=== PATIENT | female | born 1995 | race Caucasian/White ===

== ENCOUNTER → 2019-09-05 | Outpatient (CLI) | payer OTHER ==
--- NOTE | 2019-09-05 10:24 | US ---
EXAMINATION TYPE: Transabdominal DATE OF EXAM: 09/05/2019 10:10 AM COMPARISON: NONE CLINICAL HISTORY: Z36 confirm dates. Dates. 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 EXAM PERFORMED: Transabdominal (TA) EXAM MEASUREMENTS: GESTATIONAL AGE / DATING Dates by LMP: (10 weeks/6 days) EDC: 03/27/2020 Dates by First Scan: No previous this is first scan Dates by Current Scan for: (11 weeks/0 days) EDC: 03/26/2020 MATERNAL ANATOMY Uterus: Endometrium appears slightly measuring 10.0 x 7.2 x 6.6 cm on the right and 9.3 x 3 .6 x 4.3 cm on the left. Uterine anomaly is possible versus normal variant arcuate uterus. Right Ovary: 3.0 x 1.8 x 1.5 cm Left Ovary: 2.9 x 1.5 x 1.4 cm Post CDS / Adnexa: no free fluid Presence of free fluid: no Presence of corpus luteal cyst: right ovarian lesion with peripheral vascular flow = 1.7 x 1.8 x 1.2 cm Presence of subchorionic bleed: no GESTATION / SURVEY CRL: 4.1 cm (11 weeks/0 days) MSD: seen, not measured in right uterine horn Yolk Sac (normal less than 6mm): not visualized Heart Rate: 164 bpm Rhythm: Normal IUP: Viable IUP Nuchal Translucency 10-14wks (normal less than 3mm): 0.8 mm Date of LMP: 06/21/2019 Beta HcG (if available): Not available at this time Single live IUP visualized in right uterine horn measuring 11 weeks 0 days. IMPRESSION: 1. Single live intrauterine with a current sonographic age of 11 weeks and 0 days and estim ated date of delivery of 03/26/2020, overall concordant with menstrual age. 2. Endometrium appears to be with 2 distinct measurable areas on some views therefore uteri ne anomaly versus normal variant arcuate uterus are considerations.
== END | disposition home or self-care (01) ==
LOC: RADUSWWP 09:46
PROVIDERS: ATTEND Obstetrics & Gynecology
DX: Z36.89 Encounter for other specified antenatal screening (principal); Z3A.11 11 weeks gestation of pregnancy
CPT/HCPCS: 76801; 76813

== ENCOUNTER 2020-02-10 11:58 | Outpatient (CLI) | payer OTHER | END 2020-02-10 12:35 | disposition home or self-care (01) | LOC: FBPOP 11:58 | PROVIDERS: ATTEND Obstetrics & Gynecology | DX: R00.1 Bradycardia, unspecified (principal) | CPT/HCPCS: 59025 ==

== ENCOUNTER → 2020-03-21 | Outpatient (CLI) | payer OTHER | END | disposition home or self-care (01) | LOC: LABWHC1 08:46 | PROVIDERS: ATTEND Obstetrics & Gynecology | DX: Z11.59 Encounter for screening for other viral diseases (principal) ==

== ENCOUNTER 2020-03-23 06:10 | Inpatient (IN) | payer OTHER ==
[2020-03-22 12:14] VITALS: BMI 39.2
--- NOTE | 2020-03-22 16:51 | P.HPOB ---
History of Present Illness H&P Date: 03/22/20 Chief Complaint: Intrauterine at term: Prior section Patient is a 24-year-old with prior surgery and sections scheduled for repeat section. Risks/benefits/alternatives reviewed with the patient in detail and all questions were answered for her prior to proceeding to the operative room. Her Precis course generally speaking has been unremarkable and she is feeling well at this time. Past Medical History Past Medical History: No Reported History History of Any Multi-Drug Resistant Organisms: None Reported Past Surgical History: Section Past Anesthesia/Blood Transfusion Reactions: No Reported Reaction Smoking Status: Former smoker Medications and Allergies Home Medications Medication Instructions Recorded Confirmed Type Pnv,Calcium 72/Iron/Folic Acid 1 each PO DAILY 02/10/20 03/22/20 History [ Plus Tablet] Ferrous Sulfate [Feosol] 325 mg PO DAILY 03/22/20 03/22/20 History Allergies Allergy/AdvReac Type Severity Reaction Status Date / Time Penicillins Allergy Unknown Verified 02/10/20 14:23 Childhood Exam Osteopathic Statement: *. No significant issues noted on an osteopathic structural exam other than those noted in the History and Physical/Consult. Intake and Output 03/22/20 03/22/20 03/22/20 06:59 14:59 22:59 Other: Weight 110.223 kg - OBG Physical Exam Breast: both: normal (no masses) Abdomen: bowel sounds normal, no diffuse tenderness, no bruit present, no guarding noted, no hepatomegaly, no splenomegaly, no mass Vulva: both: normal Vagina: normal moisture, no discharge Cervix: no lesion, no discharge Uterus: normal size, normal contour Adnexa: both: normal Anus/Rectum: normal perianal skin, no rectal mass, no hemorrhoids, heme negative
[~2020-03-23 06:10] MED LIST: CLINDAMYCIN 600 MG in DEXTROSE 5% IN WATER 50 ML IVPB STA
[2020-03-23] MEDS ORDERED: CITRIC ACID-SODIUM CITRATE 15 ML CUP PO ONE (06:30)
[2020-03-23] MEDS: LACTATED RINGERS 1,000 ML IV SCH ×3 (06:41→17:45)
[2020-03-23 06:48] LABS: Basophils % (A) 0 %; Eosinophils # (A) 0.1 k/uL (0-0.7); Eosinophils % (A) 1 %; HCT 36.5 % (34.0-46.0); HGB 11.5 gm/dL (11.4-16.0); Lymphocytes # (A) 2.2 k/uL (1.0-4.8); Lymphocytes % (A) 29 %; MCH 29.1 pg (25.0-35.0); MCHC 31.5 g/dL (31.0-37.0); MCV 92.3 fL (80.0-100.0); Mean Platelet Volume 13.2; Monocytes # (A) 0.3 k/uL (0-1.0); Monocytes % (A) 5 %; Neutrophils # (A) 4.7 k/uL (1.3-7.7); Neutrophils % (A) 63 %; RBC 3.95 m/uL (3.80-5.40); RDW 13.2 % (11.5-15.5); WBC 7.5 k/uL (3.8-10.6)
[2020-03-23 07:53] LABS: Platelet Count 158 k/uL (150-450)
[2020-03-23 07:54] LABS: Large Platelets Present
[2020-03-23] MEDS ORDERED: ONDANSETRON 4 MG/2 ML VIAL ONE (07:54)
[2020-03-23] MEDS ORDERED: MORPHINE SULFATE (PF) 0.3 MG/0.3 ML SYR ONE (07:54)
[2020-03-23] MEDS ORDERED: NALBUPHINE 10 MG/ML (1 ML AMP) ONE (07:54)
[2020-03-23] MEDS ORDERED: KETOROLAC 30 MG/ML 1 ML VIAL ONE (07:54)
[2020-03-23] MEDS ORDERED: OXYTOCIN 10 UNIT/ML 1 ML VIAL ONE (07:54)
[2020-03-23] MEDS ORDERED: CELLULOSE,OXIDIZED 1 EACH EACH MISCELLANE ONE (08:22)
[2020-03-23] MEDS ORDERED: ZOLPIDEM 5 MG TAB PO PRN (08:49)
[2020-03-23] MEDS ORDERED: ONDANSETRON 4 MG/2 ML VIAL IVP PRN (08:49)
[2020-03-23] MEDS ORDERED: diphenhydrAMINE 50 MG/ML 1 ML VIAL IVP PRN ×3 (08:49→09:16)
[2020-03-23] MEDS ORDERED: NALOXONE 0.4 MG/ML 1 ML VIAL IV PRN (08:49)
[2020-03-23] MEDS ORDERED: diphenhydrAMINE 25 MG CAP PO PRN (08:49)
[2020-03-23] MEDS ORDERED: diphenhydrAMINE 50 MG CAP PO PRN (08:49)
[2020-03-23] MEDS ORDERED: METOCLOPRAMIDE 5 MG/ML 2 ML VIAL IVP PRN (08:49)
[2020-03-23] MEDS ORDERED: HYDROcodone/APAP 7.5-325MG 1 EACH TAB PO PRN (08:49)
[2020-03-23] MEDS ORDERED: ACETAMINOPHEN TAB 325 MG TAB PO PRN (08:49)
--- NOTE | 2020-03-23 08:54 | P.OP ---
Date of Procedure: 03/23/20 Preoperative Diagnosis: Intrauterine term: Prior section: Bicornuate uterus Postoperative Diagnosis: Same with adhesion Procedure(s) Performed: Repeat low transverse section with lysis of adhesion Anesthesia: spinal Surgeon: Dhruv Johnson Employment Coordinator #1: Na Tarango Estimated Blood Loss (ml): 350 IV fluids (ml): 1,400 Urine output (ml): 400 Pathology: none sent Condition: stable Disposition: floor Operative Findings: Male scores of 9 and 9 at one and 5 minutes respectively weight is pending. There is notation of a approximate 1 cm thick adhesion to the anterior uterine wall from the abdominal wall that was doubly ligated and transected Description of Procedure: Patient was taken to the operating suite where a spinal anesthetic was found be adequate. She was prepped and draped in the normal sterile fashion and placed in dorsal supine position with leftward tilt. Initially a Pfannenstiel skin incision was made and this incision was then carried through to the underlying layer of the fascia was second knife. Fascia was then nicked in the midline and this opening was extended laterally with Baker scissors. Superior and inferior aspect of this incision were then grasped tented up and bluntly and sharply dissected off the rectus muscles. Rectus muscles were then divided the midline and sharp dissection through the peritoneum was done. This opening was then extended superiorly and inferiorly with good visualization of both bowel bladder. Immediately upon entering a thick adhesion was noted and was doubly ligated and transected. Bladder blade was then placed and vesicouterine peritoneum identified and entered with Metzenbaum scissors and carried across face the uterus. Bladder was then bluntly dissected out of the operative field. Uterine incision was then made and then was fully developed with hemostat and extended bluntly. Bladder was then noted and elevated into the incision and once legs were delivered baby's body was brought down to shoulders were swept across the face and the head was easily delivered. Mouth nares were then bulb suctioned and the umbilical cord was clamped cut usual fashion. Nursery personnel was present and assumed care. Placenta was then delivered intact from the right horn of the uterus and uterus was then exteriorized cleared of clots and debris and closed in 2 layers with 0 Vicryl suture. Once excellent hemostasis was obtained blood and debris was suctioned from the posterior cul-de-sac and a piece of Interceed was placed over the adhesive area. Uterus was then reinserted into the abdomen and the peritoneal layer was delayed with hemostats and closed with 0 Vicryl suture. Fascial layer was closed with 0 Vicryl suture. One layer of 3-0 Vicryl was placed in deep subcuticular tissues reapproximate skin and close the space. Skin was then closed with 3-0 Vicryl subcuticular. Sponge, lap, needle counts were all correct 2. Patient was then taken to the recovery room in stable and satisfactory condition.
[2020-03-23] MEDS ORDERED: NALBUPHINE 10 MG/ML (1 ML AMP) IV PRN (09:16)
[2020-03-23] MEDS ORDERED: HYDROmorphone 0.5 MG/0.5 ML SYRINGE IVP PRN (09:16)
[2020-03-23 13:00] LABS: Amphetamine Screen,Urine Not Detected (NotDetected); Barbiturate Screen,Urine Not Detected (NotDetected); Benzodiazepines Screen,Urine Not Detected (NotDetected); Cocaine Screen,Urine Not Detected (NotDetected); Methadone Screen, Urine Not Detected (NotDetected); Opiate Screen,Urine Detected (NotDetected); Oxycodone Screen, Urine Not Detected (NotDetected); Phencyclidine Screen,Urine Not Detected (NotDetected); Tricyclic Antidepressant,Urine Not Detected (NotDetected); Urn Cannabinoid Scrn Detected (NotDetected)
[2020-03-23] MEDS: KETOROLAC 30 MG/ML 1 ML VIAL IVP PRN ×2 (15:03→21:34)
[2020-03-23] MEDS ORDERED: Rhogam IMMUNE GLOBULIN 1,500 UNIT/1 ML IM ONE (18:09)
[2020-03-23 21:00] LABS: Basophils % (A) 0 %; Eosinophils % (A) 0 %; HCT 22.3 % (34.0-46.0); Hypochromasia Slight; Lymphocytes # (A) 1.8 k/uL (1.0-4.8); Lymphocytes % (A) 8 %; MCH 30.8 pg (25.0-35.0); MCHC 32.4 g/dL (31.0-37.0); MCV 95.2 fL (80.0-100.0); Mean Platelet Volume 14.8; Monocytes # (A) 0.6 k/uL (0-1.0); Monocytes % (A) 3 %; Neutrophils # (A) 21.2 k/uL (1.3-7.7); Neutrophils % (A) 89 %; Platelet Count 251 k/uL (150-450); RBC 2.34 m/uL (3.80-5.40); RDW 13.8 % (11.5-15.5); WBC 23.8 k/uL (3.8-10.6)
[2020-03-23 21:15] LABS: HGB 7.2 gm/dL (11.4-16.0)
[2020-03-23] MEDS: SIMETHICONE 80 MG CHEWABLE PO PRN (21:37)
[2020-03-24] MEDS: SENNOSIDES-DOCUSATE SODIUM 1 EACH TAB PO SCH (02:52)
--- NOTE | 2020-03-24 03:37 | P.PN ---
Progress Note - Text Progress Note Date: 03/24/20 I was called by nursing staff earlier this evening to inform me that patient had passed several large blood clots and her blood pressure had dropped slightly. At that time her pulse rate was normal. I ordered a stat CBC. Her hemoglobin dropped from 11.5-7.5. The patient at this time was noted to have some tachycardia and still low blood pressures. She was also feeling nauseated. I ordered 1 unit of packed red blood cells. While this was infusing her blood pressure dropped even lower and she was continuing to be tachycardic. Her bleeding had slowed significantly at this time. I ordered a second IV to be started and a fluid bolus due to her low urine output. I just checked on her personally and she is feeling much better. Her blood pressures are back up to 100's over 60s. She denies feeling lightheaded or dizzy at this time. She denies any excessive bleeding currently. She is feeling like she may be able to urinate on her own shortly. She is advised to contact the nurse to get up to the bathroom. She is advised to call if she starts feeling dizzy or lightheaded again or she starts to bleed heavily.
[2020-03-24] MEDS: LACTATED RINGERS 1,000 ML IV SCH (05:00)
[2020-03-24] MEDS: SIMETHICONE 80 MG CHEWABLE PO PRN ×2 (05:00→13:10)
[2020-03-24 07:16] LABS: Basophils % (A) 0 %; Eosinophils # (A) 0.4 k/uL (0-0.7); Eosinophils % (A) 2 %; HCT 20.6 % (34.0-46.0); Lymphocytes # (A) 1.5 k/uL (1.0-4.8); Lymphocytes % (A) 8 %; MCH 30.9 pg (25.0-35.0); MCHC 34.1 g/dL (31.0-37.0); MCV 90.5 fL (80.0-100.0); Mean Platelet Volume 13.2; Monocytes # (A) 0.5 k/uL (0-1.0); Monocytes % (A) 3 %; Neutrophils # (A) 17.1 k/uL (1.3-7.7); Neutrophils % (A) 87 %; Platelet Count 178 k/uL (150-450); RBC 2.27 m/uL (3.80-5.40); RDW 14.7 % (11.5-15.5); WBC 19.6 k/uL (3.8-10.6)
[2020-03-24 08:15] LABS: Large Platelets Present
--- NOTE | 2020-03-24 08:45 | P.PN ---
Progress Note - Text Progress Note Date: 03/24/20 Desiree is seen and evaluated this morning postop day 1. She is ambulating. She is not voided and has been straight cath twice. I reviewed notes from yesterday and her syncopal episode as well as what appears to be a significant drop in hemoglobin and hypovolemia. It appears based on the description by both patient and notes that she had a an episode of very very heavy bleeding or passage of quite a few large clots in the afternoon resulting in a hypotensive/tachycardic episode and a syncopal episode. IV was restarted and medication to promote uterine tonicity was provided and her bleeding slowed significantly. Blood pressures following that were improved to the 100s over 60s. This morning her blood pressures 122/58. She has no signs or symptoms of hypovolemia. At this time she is not lightheaded minimally tachycardic but she says she feels very well she voices no complaints she's smiling sitting up in bed does not complain of fatigue or any other signs or symptoms. Her hemoglobin this morning is 7 despite having received 1 unit of blood yesterday's was difficult to say what her hemoglobin actually would have been down to. There is no signs of active bleeding anywhere. Her abdomen is soft there is no tenderness or pain her incision is otherwise intact without any bleeding. It does not appear that she had internal bleeding and it sounds more like she had incomplete uterine tonicity resulting in post /operative hemorrhage. Consideration for another unit of blood will be given and will be discussed with her she does not have to do this will plan to repeat her CBC in the morning and Dr. Baum will be covering for the remainder the day and tomorrow. While I'm not necessarily going to advise her to receive the blood I'm certainly not going to discounted as a will probably help her and increase her hemoglobin potentially up closer to 8 and if there is any continued active bleeding through the vagina and we'll stabilize this and keep her hemoglobin above 7. On physical exam vital signs again are stable at this time with no hypertension Heart is regular, lungs are clear, extremities without pain. Abdomen soft positive bowel sounds incision is otherwise intact. Assessment postop day 1 with blood loss anemia and symptomatically hypertension yesterday appears corrected today following 1 unit of packed red blood cells Plan continue care with discussion on and possible provide for another unit of packed red blood cells
[2020-03-24] MEDS: IBUPROFEN 600 MG TAB PO PRN ×2 (13:10→19:50)
[2020-03-25] MEDS: SENNOSIDES-DOCUSATE SODIUM 1 EACH TAB PO SCH ×4 (02:38→20:52)
[2020-03-25] MEDS: IBUPROFEN 600 MG TAB PO PRN ×3 (02:39→21:06)
[2020-03-25 08:26] LABS: Basophils % (A) 0 %; Eosinophils # (A) 0.1 k/uL (0-0.7); Eosinophils % (A) 1 %; Lymphocytes # (A) 1.4 k/uL (1.0-4.8); Lymphocytes % (A) 13 %; MCH 29.8 pg (25.0-35.0); MCHC 32.3 g/dL (31.0-37.0); MCV 92.3 fL (80.0-100.0); Mean Platelet Volume 11.8; Monocytes # (A) 0.4 k/uL (0-1.0); Monocytes % (A) 4 %; Neutrophils # (A) 9.3 k/uL (1.3-7.7); Neutrophils % (A) 82 %; Platelet Count 176 k/uL (150-450); RBC 1.95 m/uL (3.80-5.40); RDW 14.6 % (11.5-15.5); WBC 11.3 k/uL (3.8-10.6)
[2020-03-25 08:33] LABS: HGB 5.8 gm/dL (11.4-16.0)
[2020-03-25 09:25] LABS: Large Platelets Present
--- NOTE | 2020-03-25 12:24 | P.PNOBGPC ---
Subjective - Subjective Principal diagnosis: Status post section postoperative day #2 Interval history: Patient is feeling well today. She denies any dizziness or lightheadedness. Her bleeding has significantly decreased and is only been minimal. She is urinating without difficulty. Pain is been well controlled. She is breast- feeding. Patient reports: Reports appetite normal, Reports voiding normally, Reports pain well controlled, Reports ambulating normally Guthrie: doing well, nursing well Objective - Vital Signs Latest vital signs: Vital Signs Temp Pulse Pulse Resp BP BP Pulse Ox 03/25/20 11:58 98.4 F 110 H 16 142/75 98 03/25/20 11:40 98.1 F 112 H 16 138/78 98 03/25/20 11:25 98.0 F 110 H 16 150/84 98 03/25/20 11:15 97.9 F 116 H 16 140/84 03/25/20 07:58 98.4 F 103 H 16 130/74 03/25/20 00:00 98.3 F 84 16 118/64 03/24/20 20:00 98.4 F 98 18 128/72 03/24/20 16:00 97.2 F L 103 H 16 123/64 98 Intake and Output 03/24/20 03/25/20 03/25/20 22:59 06:59 14:59 Intake Total 0 Balance 0 Intake: Blood Product 0 Rc As-1 Unit 0 [id number] Other: # Voids 2 - Exam Extremities: Present: normal. Absent: tenderness, edema Abdomen: Present: normal appearance, soft. Absent: distention, tenderness Incision: Present: normal, dry, intact. Absent: erythematous Uterus: Present: normal, firm. Absent: tenderness - Labs Labs: Abnormal Lab Results - Last 24 Hours (Table) 03/23/20 03/25/20 Range/Units 06:20 07:57 WBC 11.3 H (3.8-10.6) k/uL RBC 1.95 L (3.80-5.40) m/uL Hgb 5.8 L* (11.4-16.0) gm/dL Hct 18.0 L* (34.0-46.0) % Neutrophils # 9.3 H (1.3-7.7) k/uL Crossmatch See Detail Assessment and Plan (1) delivery delivered Current Visit: Yes Status: Acute Code(s): O82 - ENCOUNTER FOR DELIVERY WITHOUT INDICATION SNOMED Code(s): 137896177 (2) Acute blood loss as cause of postoperative anemia Current Visit: Yes Status: Acute Code(s): D62 - ACUTE POSTHEMORRHAGIC ANEMIA SNOMED Code(s): 52103307551875019 Plan: Patient's hemoglobin this morning was 5.8 after receiving 2 units of blood yesterday. Her hemoglobin after the first unit of blood was 7. She also is severely dehydrated and after IV hydration and the blood, she has resumed normal urination and she is asymptomatic. However since she is this low I decided to transfuse one more unit to give her above her in case she does start to have any heavier bleeding at home. She is in agreement with this plan. Will recheck CBC in the morning and hopefully discharge home tomorrow if she is feeling well and her hemoglobin has improved.
[2020-03-25] MEDS: LACTATED RINGERS 1,000 ML IV SCH ×4 (20:07→20:11)
[2020-03-26 00:43] VITALS: TEMP 98.3
[2020-03-26 05:55] LABS: Basophils % (A) 0 %; Eosinophils # (A) 0.1 k/uL (0-0.7); Eosinophils % (A) 2 %; Lymphocytes # (A) 1.4 k/uL (1.0-4.8); Lymphocytes % (A) 21 %; MCH 31.5 pg (25.0-35.0); MCHC 33.8 g/dL (31.0-37.0); MCV 93.2 fL (80.0-100.0); Mean Platelet Volume 10.6; Monocytes # (A) 0.2 k/uL (0-1.0); Monocytes % (A) 4 %; Neutrophils # (A) 4.7 k/uL (1.3-7.7); Neutrophils % (A) 71 %; Platelet Count 167 k/uL (150-450); RBC 2.09 m/uL (3.80-5.40); RDW 14.9 % (11.5-15.5); WBC 6.7 k/uL (3.8-10.6)
[2020-03-26 05:57] LABS: HGB 6.6 gm/dL (11.4-16.0)
[2020-03-26 05:58] LABS: HCT 19.5 % (34.0-46.0)
--- NOTE | 2020-03-26 07:51 | P.PN ---
Progress Note - Text 03/24 5158 84-year-old female status post with spinal Duramorph. Patient seen and evaluated for postop pain control with this pain score of 3, no complains of pruritus or nausea vomiting. Doing well
--- NOTE | 2020-03-26 08:45 | P.DS ---
Providers Date of admission: 03/23/20 06:10 Expected date of discharge: 03/26/20 Attending physician: Dhruv Johnson Primary care physician: [facility] Course: Desiree is seen and evaluated postop day 3. She has been ambulating and voiding without difficulty and without assistance. Her vital signs have remained stable. Her blood pressures have been 130s over 70s 120s over 80s the last 2 days. She has had some mild tachycardia but this has never been above 110 and she has been asymptomatic. It is noted that she received another unit of blood yesterday and that her hemoglobin this morning is 6.6. It would appear that even if she had some internal bleeding it has stopped and she is requesting discharge to home. She and I did discuss at length the possibility that she did have some internal bleeding but her physical exam does not suggest or verify this possibility. Despite her very low hemoglobin she has remained very stable and at this time she is requesting discharge home. The prescription for Motrin and a breast pump were provided. Discharge instructions were very thoroughly reviewed both she and her day voice understanding. Her heart is regular, lungs are clear, extremities without pain. Abdomen is soft bowel sounds are present. Her incision is clean dry and intact. Despite her low hemoglobin and the possibility that she may have had some internal bleeding that appears to stopped, I again cannot verify this. She has no ecchymosis or bruising on her abdomen and again her belly is very soft with no evidence of any pain at all suggestive of hemoperitoneum. Assessment postop day 3 with blood loss anemia Plan discharged home follow up with me in 1 week for incision check and verify stability of symptoms. Patient Condition at Discharge: Good Plan - Discharge Summary New Discharge Prescriptions: New Ibuprofen [Motrin] 600 mg PO Q6HR PRN #30 tab PRN Reason: Pain No Action Pnv,Calcium 72/Iron/Folic Acid [ Plus Tablet] 1 each PO DAILY Ferrous Sulfate [Feosol] 325 mg PO DAILY Discharge Medication List Pnv,Calcium 72/Iron/Folic Acid [ Plus Tablet] 1 each PO DAILY 02/10/20 [History] Ferrous Sulfate [Feosol] 325 mg PO DAILY 03/22/20 [History] Ibuprofen [Motrin] 600 mg PO Q6HR PRN #30 tab 03/26/20 [Rx] Follow up Appointment(s)/Referral(s): Dhruv Johnson DO [Doctor of Osteopathic Medicine] - 1 Week Activity/Diet/Wound Care/Special Instructions: No heavy lifting, limit stairs and driving, and pelvic rest. If any high temperatures, heavy bleeding, or severe pain call my office. She and I did discuss if she has any lightheadedness dizziness signs as or symptoms of hypovolemia to notify our office or [facility] emergency room immediately. Discharge Disposition: HOME SELF-CARE
[2020-03-26] MEDS: SENNOSIDES-DOCUSATE SODIUM 1 EACH TAB PO SCH (08:56)
[2020-03-26 09:27] VITALS: BP 151/89; PULSE 106; RESP 16
== END 2020-03-26 13:30 | disposition home or self-care (01) | DRG 787 ==
LOC: 4FBP 06:10
PROVIDERS: ADMIT Obstetrics & Gynecology; ATTEND Obstetrics & Gynecology
PROC: 30233N1 Transfusion of Nonautologous Red Blood Cells into Peripheral Vein, Percutaneous Approach (ICD-10-PCS; 2020-03-23)
PROC: 3E0334Z Introduction of Serum, Toxoid and Vaccine into Peripheral Vein, Percutaneous Approach (ICD-10-PCS; 2020-03-23)
PROC: 10D00Z1 Extraction of Products of Conception, Low, Open Approach (ICD-10-PCS; principal; 2020-03-23 08:00)
PROC: 0UN90ZZ Release Uterus, Open Approach (ICD-10-PCS; principal; 2020-03-23 08:00)
DX: O34.211 Maternal care for low transverse scar from previous cesarean delivery (principal); D62 Acute posthemorrhagic anemia; O36.0930 Maternal care for other rhesus isoimmunization, third trimester, not applicable or unspecified; K66.0 Peritoneal adhesions (postprocedural) (postinfection); O16.4 Unspecified maternal hypertension, complicating childbirth; O99.02 Anemia complicating childbirth; Z37.0 Single live birth; Z87.891 Personal history of nicotine dependence
CPT/HCPCS: 80306; 85025; 85461; 86850; 86900; 86901; 86920

== ENCOUNTER 2024-09-15 05:50 | Inpatient (IN) | payer OTHER ==
[2024-09-15] MEDS ORDERED: OXYTOCIN 10 UNIT/ML 1 ML VIAL IM PRN (06:07)
[2024-09-15] MEDS ORDERED: CARBOPROST TROMETHAMINE 250 MCG/ML 1 ML AMP IM PRN (06:07)
[2024-09-15] MEDS ORDERED: METHYLERGONOVINE 0.2 MG/ML 1 ML AMP IM PRN (06:07)
[2024-09-15] MEDS ORDERED: TRANEXAMIC 1,000 MG/100ML-NACL 1,000 MG in EMPTY BAG 1 BAG IV PRN (06:07)
[2024-09-15] MEDS ORDERED: miSOPROStoL 200 MCG TAB PO PRN (06:07)
[2024-09-15 06:25] LABS: Basophils % (A) 1 %; Eosinophils # (A) 0.1 k/uL (0-0.7); Eosinophils % (A) 1 %; HCT 35.3 % (34.0-46.0); HGB 11.6 gm/dL (11.4-16.0); Lymphocytes # (A) 1.6 k/uL (1.0-4.8); Lymphocytes % (A) 21 %; MCH 30.2 pg (25.0-35.0); MCHC 32.9 g/dL (31.0-37.0); MCV 91.8 fL (80.0-100.0); Mean Platelet Volume 10.6; Monocytes # (A) 0.3 k/uL (0-1.0); Monocytes % (A) 4 %; Neutrophils # (A) 5.7 k/uL (1.3-7.7); Neutrophils % (A) 73 %; Platelet Count 201 k/uL (150-450); RBC 3.84 m/uL (3.80-5.40); RDW 13.6 % (11.5-15.5); WBC 7.8 k/uL (3.8-10.6)
[2024-09-15] MEDS: LACTATED RINGERS 1,000 ML IV SCH ×2 (06:25→13:12)
[2024-09-15] MEDS: CITRIC ACID-SODIUM CITRATE 15 ML CUP PO ONE (07:34)
[2024-09-15] MEDS ORDERED: MORPHINE SULFATE (PF) 0.3 MG/0.3 ML SYR ONE (08:00)
[2024-09-15] MEDS ORDERED: PHENYLEPHRINE-0.9% NACL SYG 1,000 MCG/10 ML SYRINGE ONE (08:00)
[2024-09-15] MEDS ORDERED: OXYTOCIN 30 UNITS/500 ML NS BAG IV ONE (08:00)
[2024-09-15] MEDS ORDERED: fentaNYL (PF) 50 MCG/ML 2 ML AMP ONE (08:00)
[2024-09-15] MEDS: OXYTOCIN 30 UNITS/500 ML NS 30 UNIT in SALINE 1 500ML.BAG IV SCH (08:53)
--- NOTE | 2024-09-15 09:03 | P.HPOB ---
History of Present Illness H&P Date: 09/15/24 Chief Complaint: IUP at 39-0/7 weeks, unicornuate uterus, history of x 2 29-year-old -0-0-2 at 39 0/7 weeks that presents to labor and delivery for scheduled repeat section. Patient has been receiving routine care which has been essentially uncomplicated. Patient has a prior history of 2 secondary to unicornuate uterus. Patient does have a history of hemorrhage with prior deliveries. This morning patient notes good movement denies contractions vaginal bleeding or loss of fluid. On blood work this patient is a poor type of A-, rubella status immune, hepatitis B surface engine negative, HIV negative, RPR is nonreactive, grew beta strep cultures negative. Review of Systems Constitutional: Denies chills, Denies fatigue, Denies fever Ears, nose, mouth and throat: Denies headache Cardiovascular: Reports leg edema Respiratory: Denies dyspnea Gastrointestinal: Denies nausea, Denies vomiting Genitourinary: Reports Past Medical History Past Medical History: No Reported History Additional Past Medical History / Comment(s): hx anemia with last . 2 blood transfusions. has had iron infusions with current . History of Any Multi-Drug Resistant Organisms: None Reported Past Surgical History: Section Additional Past Surgical History / Comment(s): wisdom teeth removed, Past Anesthesia/Blood Transfusion Reactions: No Reported Reaction Additional Past Anesthesia/Blood Transfusion Reaction / Comment(s): no issues with blood transfusions Past Psychological History: No Psychological Hx Reported Smoking Status: Former smoker Past Alcohol Use History: None Reported Additional Past Alcohol Use History / Comment(s): quit smoking 11/2023 for Past Drug Use History: Marijuana Additional Drug Use History / Comment(s): none since december 2023 - Past Family History Father Family Medical History: No Reported History Mother Family Medical History: Hypertension Medications and Allergies Home Medications Medication Instructions Recorded Confirmed Type Vit No.180/Iron/Folic 1 each PO DAILY 02/10/20 09/15/24 History [ Plus Tablet] Iron 27mg 1 tab PO BID 09/13/24 09/15/24 History Allergies Allergy/AdvReac Type Severity Reaction Status Date / Time Penicillins Allergy Unknown Verified 09/13/24 13:07 Childhood Exam Osteopathic Statement: *. No significant issues noted on an osteopathic structural exam other than those noted in the History and Physical/Consult. Intake and Output 09/14/24 09/15/24 09/15/24 22:59 06:59 14:59 Other: Weight 101.605 kg Targeted physical exam is performed this date General Is well-nourished well- developed female in no acute distress, breathing is nonlabored, heart has a regular rate and rhythm, abdomen is gravid and appropriate for gestational age, cervical exam is deferred, heart tones noted be category 1 and she is not kandace. Results Result Diagrams: 09/15/24 06:07 Assessment and Plan (1) Term Current Visit: Yes Status: Acute Code(s): Z34.90 - ENCNTR FOR SUPRVSN OF NORMAL , UNSP, UNSP TRIMESTER SNOMED Code(s): 19432207 (2) History of section Current Visit: Yes Status: Acute Code(s): Z98.891 - HISTORY OF UTERINE SCAR FROM PREVIOUS SURGERY SNOMED Code(s): 933489646 (3) Unicornuate uterus Current Visit: Yes Status: Acute Code(s): Q51.4 - UNICORNATE UTERUS SNOMED Code(s): 7805980 Plan: 29-year-old G3, P2 at 39-0/7 weeks that presents for repeat section. Patient has a history of a uterine anomaly, unicornuate uterus. Patient is counseled on repeat section and questions were answered. Anesthesia into see patient and will proceed to operating suite.
[2024-09-15] MEDS ORDERED: ONDANSETRON 4 MG/2 ML VIAL IVP PRN (09:07)
[2024-09-15] MEDS ORDERED: diphenhydrAMINE 50 MG CAP PO PRN (09:07)
[2024-09-15] MEDS ORDERED: diphenhydrAMINE 50 MG/ML 1 ML VIAL IVP PRN ×2 (09:07)
[2024-09-15] MEDS ORDERED: NALOXONE 0.4 MG/ML 1 ML VIAL IV PRN (09:07)
[2024-09-15] MEDS ORDERED: SIMETHICONE 80 MG CHEWABLE PO PRN (09:07)
[2024-09-15] MEDS ORDERED: METOCLOPRAMIDE 5 MG/ML 2 ML VIAL IVP PRN (09:07)
[2024-09-15] MEDS ORDERED: ZOLPIDEM 5 MG TAB PO PRN (09:07)
[2024-09-15] MEDS ORDERED: diphenhydrAMINE 25 MG CAP PO PRN (09:07)
--- NOTE | 2024-09-15 09:07 | P.OP ---
Date of Procedure: 09/15/24 Preoperative Diagnosis: IUP at 39-0/7 weeks, history of section x 2, desires repeat, unicornuate uterus Postoperative Diagnosis: Same Procedure(s) Performed: Repeat section Anesthesia: spinal Surgeon: [employer] Learning Support Teacher #1: Na Tarango Estimated Blood Loss (ml): 585 IV fluids (ml): 1,000 Urine output (ml): 300 Pathology: none sent Condition: stable Disposition: observation Indications for Procedure: History of section x 2, unicornuate uterus Operative Findings: Unicornuate uterus is appreciated, viable female infant delivered in transverse presentation, at 826, weight of 6 pounds 9 ounces Description of Procedure: Patient was taken back to the operating suite where spinal anesthesia was found to be adequate by the anesthesia department. She was prepped and draped in normal sterile fashion in the dorsal supine position. A Pfannenstiel skin incision was made with a scalpel and carried through the underlying layer of fascia. The fascia was incised in the midline and extended laterally. The superior aspect of the fascial incision was then grasped with Moises clamps, elevated and the underlying rectus muscles dissected off sharply. The inferior aspect of the vaginal incision was then grasped with Moises clamps, elevated and the underlying rectus muscle was dissected off sharply. The rectus muscles were the midline the peritoneum was identified and entered. This incision was then extended superiorly and inferiorly with good visualization of the bladder. The bladder blade was then inserted into the pelvis. Anterior bladder adhesions were noted and taken down sharply with good visualization of the bladder. The bladder blade was then reinserted into the pelvis hysterotomy inci marcio was made with a scalpel and extended laterally. Amniotomy performed clear fluid is obtained. The infant was taken encountered in a transverse presentation the arm extruded through the hysterotomy incision the head was encountered and then delivered in a vertex presentation. The umbilical cord was doubly clamped and cut and the was handed off to waiting RN. Spontaneous cry was noted. The placenta was delivered manually and the uterus was cleared of all clots and debris. The uterus exterior was exteriorized and hysterotomy incision was closed with 0 Vicryl in a running locked fashion. A second 0 Vicryl suture was used to perform an imbricating layer. Small amount of bleeding was noted in the midportion therefore a [id number] suture was used to obtain hemostasis. The uterus was returned to the abdomen and the hysterotomy incision was inspected once again. Hemostasis was noted. The gutters were cleared of all clots and debris. The peritoneum was then loosely reapproximated. The rectus muscles were inspected and found to be hemostatic. The fascia was closed with 0 Vicryl in a running fashion from 1 lateral edge to the midportion and the other lateral edge to the midportion. The subcutaneous tissue was irrigated and found to be hemostatic. The subcutaneous tissue was closed with 3-0 Vicryl in a running fashion. The skin was closed with 4-0 Vicryl in a subcuticular fashion. Steri-Strips and sterile dressings were applied. All counts were noted to be correct x 2. Patient tolerated procedure well.
[2024-09-15] MEDS: ACETAMINOPHEN IV (For NPO) 1,000 MG in EMPTY BAG 1 BAG IVPB ONE (10:08)
[2024-09-15] MEDS: GENTAMICIN 240 MG in SODIUM CHLORIDE 0.9% 100 ML IVPB ONE (10:10)
[2024-09-15] MEDS: CLINDAMYCIN 900 MG in DEXTROSE 5% IN WATER 50 ML IVPB ONE (10:10)
[2024-09-15] MEDS: Rhogam IMMUNE GLOBULIN 1,500 UNIT/1 ML IM ONE (13:08)
[2024-09-15] MEDS: IBUPROFEN IV 800 MG in SODIUM CHLORIDE 0.9% 250 ML IV ONE (15:57)
[2024-09-15] MEDS: IBUPROFEN 800 MG TAB PO SCH (15:57)
[2024-09-15] MEDS: ACETAMINOPHEN TAB 500 MG TAB PO SCH (20:43)
[2024-09-15] MEDS: SENNOSIDES-DOCUSATE SODIUM 1 EACH TAB PO SCH (20:43)
[2024-09-16 04:58] LABS: Basophils % (A) 1 %; Eosinophils # (A) 0.1 k/uL (0-0.7); Eosinophils % (A) 1 %; HCT 30.6 % (34.0-46.0); HGB 10.1 gm/dL (11.4-16.0); Lymphocytes # (A) 1.4 k/uL (1.0-4.8); Lymphocytes % (A) 17 %; MCH 30.7 pg (25.0-35.0); MCV 93.3 fL (80.0-100.0); Mean Platelet Volume 10.2; Monocytes # (A) 0.3 k/uL (0-1.0); Monocytes % (A) 3 %; Neutrophils # (A) 6.3 k/uL (1.3-7.7); Neutrophils % (A) 77 %; Platelet Count 152 k/uL (150-450); RBC 3.28 m/uL (3.80-5.40); RDW 13.6 % (11.5-15.5); WBC 8.3 k/uL (3.8-10.6)
--- NOTE | 2024-09-16 06:02 | P.PNOBGPC ---
Subjective - Subjective Principal diagnosis: Day 1, repeat section Interval history: Patient is doing well postoperatively. She is ambulating voiding without difficulty. She is tolerating a regular diet without nausea or vomiting. States her pain is well-controlled. She is breast-feeding without difficulty. She notes her lochia to be minimal to moderate. Patient reports: Reports appetite normal, Reports voiding normally, Reports pain well controlled, Reports ambulating normally : doing well, nursing well Objective - Vital Signs Latest vital signs: Vital Signs Temp Pulse Resp BP Pulse Ox 09/16/24 00:00 98.7 F 80 16 119/79 100 09/15/24 20:00 97.1 F L 80 16 106/72 98 09/15/24 16:00 98.5 F 69 14 120/67 99 09/15/24 12:05 97.4 F L 62 14 108/75 98 09/15/24 10:54 96.2 F L 63 16 111/70 100 09/15/24 10:39 96.6 F L 62 16 113/69 100 09/15/24 10:24 71 16 109/69 99 09/15/24 10:09 63 16 107/65 99 09/15/24 09:54 96.9 F L 62 16 104/64 99 09/15/24 09:39 62 16 109/63 99 09/15/24 09:24 96.5 F L 66 16 117/74 98 09/15/24 09:09 96.7 F L 90 18 121/72 98 09/15/24 08:54 97.3 F L 101 H 18 120/68 97 Intake and Output 09/15/24 09/15/24 09/16/24 14:59 22:59 06:59 Intake Total 167 Output Total 2061 1100 Balance -189 -1100 Intake: Intake, IV Titration 167 Amount Oxytocin 30 Units/500 ml 167 Ns 30 unit In Saline 1 500ml.bag @ Per Protocol IV .Q0M [facility] Rx#:[id number] Output: Urine 1400 1100 Output, Quantitative 662 Blood Loss Other: Voiding Method Indwelling Catheter Indwelling Catheter # Voids 1 - Exam Extremities: Present: normal, edema Abdomen: Present: normal appearance, soft Incision: Present: normal, dry, intact Uterus: Present: normal, firm - Labs Labs: Abnormal Lab Results - Last 24 Hours (Table) 09/16/24 Range/Units 04:42 RBC 3.28 L (3.80-5.40) m/uL Hgb 10.1 L (11.4-16.0) gm/dL Hct 30.6 L (34.0-46.0) % Assessment and Plan (1) Term Current Visit: Yes Status: Acute Code(s): Z34.90 - ENCNTR FOR SUPRVSN OF NORMAL , UNSP, UNSP TRIMESTER SNOMED Code(s): 25257830 (2) History of section Current Visit: Yes Status: Acute Code(s): Z98.891 - HISTORY OF UTERINE SCAR FROM PREVIOUS SURGERY SNOMED Code(s): 584195088 (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 Will encourage increased ambulation today. Continue routine postoperative care and anticipate discharge home tomorrow.
[2024-09-16] MEDS: PRENATAL VIT-IRON-FOLIC ACID 1 EACH TABLET PO SCH (10:19)
--- NOTE | 2024-09-16 11:14 | P.PN ---
Progress Note - Text 09/16/24 644am 29-year-old female status post spinal Duramorph. Patient seen and evaluated for postop pain control, she has a VAS of 0 with no complaints of nausea vomiting or pruritus. Patient is doing well
[2024-09-17 04:44] VITALS: TEMP 98.6
--- NOTE | 2024-09-17 08:59 | P.DS ---
Providers Date of admission: 09/15/24 05:50 Expected date of discharge: 09/17/24 Attending physician: Chika Ospina Primary care physician: Stated None Hospital Course: Ms. Vidal is a 29 year old now POD#2 s/p repeat section without complications. She desires discharge home today. The patient is doing well this morning and had no acute events overnight. She has no complaints this morning. She reports minimal lochia, passing flatus, voiding without difficulty, ambulating, and eating/drinking without nausea or vomiting. doing well at bedside, is going well. She denies chest pain, shortness of breathing, fevers, or chills overnight. She denies pain or swelling in the legs. Postoperative restrictions are reviewed with the patient including pelvic rest for 6 weeks, no lifting heavier than 15 pounds for 6 weeks. The patient is encouraged to call the office if she experiences any heavy bleeding, foul- smelling discharge, breast complaints, or any if she has any other concerns. She will follow up in the office with Dr. Ospina in 2 weeks>> for postoperative exam. All questions are answered. Assessment: 29 year old now POD#2 s/p repeat Patient Condition at Discharge: Good Plan - Discharge Summary Discharge Rx Participant: No New Discharge Prescriptions: New Ibuprofen [Motrin] 600 mg PO Q6HR PRN #30 tab PRN Reason: Mild Pain (Scale 1 To 3) Acetaminophen Tab [Tylenol] 650 mg PO Q6H PRN #30 tab PRN Reason: Mild Pain (Scale 1 To 3) No Action Vit No.180/Iron/Folic [ Plus Tablet] 1 each PO DAILY Iron 27mg 1 tab PO BID Discharge Medication List Vit No.180/Iron/Folic [ Plus Tablet] 1 each PO DAILY 02/10/20 [History] Iron 27mg 1 tab PO BID 09/13/24 [History] Acetaminophen Tab [Tylenol] 650 mg PO Q6H PRN #30 tab 09/17/24 [Rx] Ibuprofen [Motrin] 600 mg PO Q6HR PRN #30 tab 09/17/24 [Rx] Follow up Appointment(s)/Referral(s): Chika Ospina DO [Doctor of Osteopathic Medicine] - 2 Weeks Activity/Diet/Wound Care/Special Instructions: Instructions 1. Do not begin any exercise program for 3 weeks. 2. Do not resume sexual relations for 6 weeks or longer if uncomfortable. 3. You may take tub baths or showers at any time. 4. You may use tampons if desired after 6 weeks. 5. Keep any areas repaired with stitches clean and dry. 6. If you are not nursing, wear a good fitting, supportive bra during the day and limit fluid intake for at least 1 week to prevent breast engorgement. 7. Call the office, , within the next week to make appointment for your 6 week checkup if it has not already been made. 8. Report any of the following occurrences to the doctor promptly: a. Heavy, excessive bleeding b. Chills, fever c. Burning or frequency of urination d. Pain or redness and breasts if nursing e. Increasing pain or swelling of vulva (stitches). In addition to the above instructions, the following additional should be followed: 1. No heavy lifting or straining (exercising) until after 6 week checkup. 2. Keep abdominal incision clean and dry: You may wear a dressing if more comfortable. 3. Make office appointment for 2 weeks after delivery date. Discharge Disposition: HOME SELF-CARE
[2024-09-17 09:33] VITALS: BP 131/81; PULSE 84; RESP 18
== END 2024-09-17 12:15 | disposition home or self-care (01) | DRG 540 ==
LOC: 4FBP 05:50
PROVIDERS: ADMIT Obstetrics & Gynecology Obstetrics; ATTEND Obstetrics & Gynecology Obstetrics
PROC: 10D00Z1 Extraction of Products of Conception, Low, Open Approach (ICD-10-PCS; principal; 2024-09-15 08:00)
DX: O34.211 Maternal care for low transverse scar from previous cesarean delivery (principal); O34.03 Maternal care for unspecified congenital malformation of uterus, third trimester; O32.2XX0 Maternal care for transverse and oblique lie, not applicable or unspecified; Q51.4 Unicornate uterus; Z37.0 Single live birth; Z3A.39 39 weeks gestation of pregnancy; Z87.891 Personal history of nicotine dependence
CPT/HCPCS: 85025; 85461; 86850; 86900; 86901